=== PATIENT | male | born 2000 | race Caucasian/White ===

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

== ENCOUNTER 2021-09-18 10:47 | Emergency (ER) | payer MEDICAID ==
[2021-09-18] MEDS ORDERED: [UNRECOGNIZED DRUG - OTHER] PO ONE ×2 (11:21)
[2021-09-18] MEDS ORDERED: ALUM HYDROXIDE PO ONE ×2 (11:21)
[2021-09-18] MEDS ORDERED: Sodium Chloride 0.9% 10 ML Syringe FLUSH PRN (12:13)
[2021-09-18] MEDS ORDERED: Iopamidol 755 Mg/ML 100 ML Bottle IV ONE (12:32)
== END 2021-09-18 14:50 | disposition home or self-care (01) ==
LOC: FB.ED 10:47
DX: R07.89 Other chest pain (principal); K21.9 Gastro-esophageal reflux disease without esophagitis; Z79.899 Other long term (current) drug therapy
CPT/HCPCS: 36415; 71046; 71275; 80053; 83735; 84484; 85025; 85379; 93005; 93010; 99283; 99285-25; A9270-GY; Q9967

== ENCOUNTER 2022-01-14 19:58 | Emergency (ER) | payer MEDICAID ==
[2022-01-14] MEDS: Atenolol 25 MG Tab PO ONE (20:53)
== END 2022-01-14 21:38 | disposition home or self-care (01) ==
LOC: FB.ED 19:58
DX: I47.1 Supraventricular tachycardia (principal); K21.9 Gastro-esophageal reflux disease without esophagitis; Z79.899 Other long term (current) drug therapy; Z86.16 Personal history of COVID-19
CPT/HCPCS: 93005; 93010; 99282; 99284; A9270-GY

== ENCOUNTER 2023-10-10 22:21 | Emergency (ER) | payer MEDICAID | END 2023-10-10 23:26 | disposition left against medical advice (07) | LOC: FB.ED 22:52 | DX: Z53.21 Procedure and treatment not carried out due to patient leaving prior to being seen by health care provider (principal) ==